=== PATIENT | female | born 1985 | race Two or more races ===

== ENCOUNTER 2022-03-07 11:45 | Emergency (ER) | payer SELFPAY ==
[~2022-03-07] VITALS: Ht 162.6 cm; Wt 108.0 kg
[2022-03-07] MEDS ORDERED: NAP500T PO (14:23)
[2022-03-07] MEDS ORDERED: TETANUS-DIPTH-ACEL PERTUSSIS 0.5ML SYR Tdap IM ONE (14:30)
[2022-03-07 14:34] VITALS: BP 91/71
[2022-03-07] MEDS ORDERED: KETOROLAC TROMETH 60MG/2ML VIAL IM ONE (15:00)
== END 2022-03-07 15:35 | disposition home or self-care (01) ==
LOC: ER 11:45
DX: S83.92XA Sprain of unspecified site of left knee, initial encounter (principal); E78.5 Hyperlipidemia, unspecified; X58.XXXA Exposure to other specified factors, initial encounter; Y93.89 Activity, other specified; Y92.89 Other specified places as the place of occurrence of the external cause; Y99.8 Other external cause status
CPT/HCPCS: 29505; 73562; 96372; 99283; J1885